=== PATIENT | male | born 1995 | race Caucasian/White ===

== ENCOUNTER 2023-01-16 13:42 | Emergency (ER) | payer OTHER ==
[2023-01-16] MEDS ORDERED: Boostrix 0.5 ML (Tdap) VIAL (>/=7 yrs of age) ONE (14:32)
== END 2023-01-16 15:00 | disposition home or self-care (01) ==
LOC: NAV ERS 13:42
DX: S50.311A Abrasion of right elbow, initial encounter (principal); R55 Syncope and collapse; I10 Essential (primary) hypertension; F17.210 Nicotine dependence, cigarettes, uncomplicated; Z79.899 Other long term (current) drug therapy; W18.30XA Fall on same level, unspecified, initial encounter
CPT/HCPCS: 90471; 90715; 99283